=== PATIENT | female | born 1945 | race Caucasian/White ===

== ENCOUNTER → 2021-03-17 | Outpatient (CLI) | payer MEDICARE, BC ==
--- NOTE | 2021-03-17 10:15 | BD ---
EXAMINATION TYPE: Axial Bone Density DATE OF EXAM: 03/17/2021 COMPARISON: NONE CLINICAL HISTORY: Postmenopausal female. Height: 62 IN Weight: 155 LBS RISK FACTORS HISTORY OF: History of Wrist Fracture: RT WRIST AGE 49 Active: LIMITED Diet low in dairy products/other sources of calcium: YES Postmenopausal woman: AGE 52 Lost more than 2 inches in height since high school: YES 11/22" MEDICATIONS: Additional Medications: CALCIUM, VIT D, TYLENOL ARTHRITIS , CBD OIL, MUSCLE RELAXERS EXAM MEASUREMENTS: Bone mineral densitometry was performed using the [employer]ek System. Bone mineral density as measured about the Lumbar spine is: ----- L1-L4(G/cm2): 1.015 T Score Values are as follows: ----- L2: -2.3 ----- L3: -1.7 ----- L4: 0.3 ----- L1-L4: -1.4 Bone mineral density BASELINE Bone mineral density about the R hip (g/cm2): 0.763 Bone mineral density about the L hip (g/cm2): 0.741 T Score values are as follows: -----R Neck: -2.0 -----L Neck: -2.1 -----R Total: -2.0 -----L Total: -2.3 Bone mineral density BASELINE IMPRESSION: Osteopenia (T Score between -2.5 and -1). There is slightly increased risk of fracture and the patient may be considered for treatment. Re-Screen 2-5 years. NOTE: T-SCORE=SD OF THE YOUNG ADULT MEAN.
== END | disposition home or self-care (01) ==
LOC: RADBDWWP 08:30
PROVIDERS: ATTEND Family Medicine
DX: M85.89 Other specified disorders of bone density and structure, multiple sites (principal); Z78.0 Asymptomatic menopausal state
CPT/HCPCS: 77080

== ENCOUNTER 2021-04-06 06:23 | Emergency (ER) | payer MEDICARE, BC ==
[2021-04-06 06:32] VITALS: RESP 18
[2021-04-06] MEDS ORDERED: KETOROLAC 15 MG/ML 1 ML VIAL IM STA (07:30)
--- NOTE | 2021-04-06 07:40 | ED ---
General Adult HPI - General Chief complaint: Back Pain/Injury Stated complaint: Back Pain Time Seen by Provider: 04/06/21 07:07 Source: patient, EMS, RN notes reviewed Mode of arrival: EMS - History of Present Illness Initial comments: Moni is a 75-year-old female who presents for right leg pain. Patient reports that she has had leg pain for over 4 months now. Patient has been prescribed muscle relaxer by primary care and tramadol by ortho without relief. Patient states that she has sharp shooting pain in the right lateral thigh and sometimes lower leg. States she sometimes has pain in her back. Patient denies weakness, bladder bowel changes, saddle anesthesia, or fevers. Patient states she has been seeing Dr. Rios for this. She was supposed to have an outp atient MRI but was unable to lay down for it even with the medications they gave her. Therefore they scheduled an outpatient CAT scan for today however patient came to the emergency room instead of her 740 appointment for this because of her pain. Patient has no other complaints at this time including shortness of breath, chest pain, abdominal pain, nausea or vomiting, headache, or visual changes. - Related Data Home Medications Medication Instructions Recorded Confirmed Acetaminophen [Tylenol Arthritis] 650 mg PO Q12H PRN 04/06/21 04/06/21 Pantoprazole Sodium [Protonix] 40 mg PO DAILY 04/06/21 04/06/21 predniSONE [Deltasone] See Taper PO DAILY 04/06/21 04/06/21 traMADol HCl [Ultram] 50 mg PO BID PRN 04/06/21 04/06/21 Allergies Allergy/AdvReac Type Severity Reaction Status Date / Time No Known Allergies Allergy Verified 04/06/21 08:09 Review of Systems ROS Statement: Those systems with pertinent positive or pertinent negative responses have been documented in the HPI. ROS Other: All systems not noted in ROS Statement are negative. Past Medical History Past Medical History: No Reported History History of Any Multi-Drug Resistant Organisms: None Reported Past Surgical History: Tubal Ligation Past Psychological History: No Psychological Hx Reported Smoking Status: Former smoker Past Alcohol Use History: None Reported Past Drug Use History: None Reported General Exam General appearance: alert, in no apparent distress Head exam: Present: atraumatic, normocephalic, normal inspection Eye exam: Present: normal appearance, PERRL, EOMI. Absent: scleral icterus, conjunctival injection, periorbital swelling ENT exam: Present: normal exam, mucous membranes moist Neck exam: Present: normal inspection, full ROM. Absent: tenderness, meningismus, lymphadenopathy Respiratory exam: Present: normal lung sounds bilaterally. Absent: respiratory distress, wheezes, rales, rhonchi, stridor Cardiovascular Exam: Present: regular rate, normal rhythm, normal heart sounds. Absent: systolic murmur, diastolic murmur, rubs, gallop, clicks GI/Abdominal exam: Present: soft, normal bowel sounds. Absent: distended, tenderness, guarding, rebound, rigid Extremities exam: Present: full ROM (full ROM of the RLE. ), normal capillary refill (cap refill < 2 seconds, dp and pt pulse 2+), other (normal skin exam, sensation intact). Absent: tenderness Back exam: Absent: vertebral tenderness Neurological exam: Present: alert Course Vital Signs 04/06/21 04/06/21 04/06/21 06:26 08:10 09:00 Temperature 98.3 F Pulse Rate 91 98 90 Respiratory 18 18 18 Rate Blood Pressure 160/78 151/79 145/68 O2 Sat by Pulse 97 95 95 Oximetry Medical Decision Making - Medical Decision Making Vitals are stable. HPI and physical exam as documented. CT lumbar spine was performed. Unfortunately this does show a destructive right sacral mass with an abnormal right upper pelvic retroperitoneal mass or adenopathy worrisome for metastatic neoplasm. Further workup advised. Case was discussed with Dr. Bailey who will admit patient. Requests consult to Dr. Gutierrez as she has [facility] well as intervention[facility]ology. Pain control initiated. Disposition Clinical Impression: Sacral mass, Pelvic mass, Intractable pain Disposition: ADMITTED IP TO THIS HOSP Is patient prescribed a controlled substance at d/c from ED?: No Referrals: Dl Barnes Jr, [Primary Care Provider] - 1-2 days Time of Disposition: 10:19
[2021-04-06] MEDS ORDERED: HYDROmorphone 0.5 MG/0.5 ML SYRINGE IM STA (08:22)
--- NOTE | 2021-04-06 08:50 | CT ---
EXAMINATION TYPE: CT lumbar spine wo con DATE OF EXAM: 04/06/2021 8:39 AM COMPARISON: none. HISTORY: Rt radiculopathy CT DLP: 843.8 mGycm Automated exposure control for dose reduction was used. Unenhanced CT of the lumbar spine was performed. Bone and soft tissue window settings are submitted as well as coronal and sagittal reconstructions. There are 5 lumbar-type vertebra. There is grade 1 anterolisthesis L4 on L5. Moderate to severe disc space narrowing L5-S1 level. Vertebral body heights maintained. No acute fracture. Spinal canal gross ly preserved. There is destructive right sacral lesion measuring 5.4 x 4.2 cm image 68 measuring 5.8 cm craniocauda l dimension coronal image 50. There is additional abnormal right retroperitoneal 6.8 x 6.2 cm mass ax ial image 65 measuring 6.7 cm craniocaudal dimension coronal image 23 pass the abdominal aortic bifur cation. IMPRESSION: Destructive right sacral mass with abnormal right upper pelvic retroperitoneal mass or ad enopathy worrisome for metastatic neoplasm. Further workup and follow-up advised.
[2021-04-06] MEDS ORDERED: KETOROLAC 15 MG/ML 1 ML VIAL IVP PRN (10:19)
[2021-04-06] MEDS ORDERED: NALOXONE 0.4 MG/ML 1 ML VIAL IV PRN (10:19)
[2021-04-06] MEDS ORDERED: ONDANSETRON 4 MG/2 ML VIAL IVP PRN (10:19)
[2021-04-06] MEDS ORDERED: HYDROmorphone 0.5 MG/0.5 ML SYRINGE IVP PRN (10:19)
[2021-04-06] MEDS ORDERED: SODIUM CHLORIDE 0.9% 1,000 ML IV SCH (10:30)
[2021-04-06] MEDS ORDERED: traMADol 50 MG TAB PO PRN (10:36)
[2021-04-06] MEDS ORDERED: oxyCODONE-APAP 10-325MG 1 EACH TAB PO PRN (10:36)
[2021-04-06 10:47] LABS: HCT 43.1 % (34.0-46.0); HGB 14.8 gm/dL (11.4-16.0); MCHC 34.3 g/dL (31.0-37.0); MCV 93.5 fL (80.0-100.0); Mean Platelet Volume 7.1; Platelet Count 346 k/uL (150-450); RBC 4.61 m/uL (3.80-5.40); RDW 12.7 % (11.5-15.5); WBC 9.8 k/uL (3.8-10.6)
[2021-04-06 11:01] LABS: INR 0.9 (<1.2); Partial Thromboplastin Time 23.7 sec (22.0-30.0); Prothrombin Time 10.2 sec (9.0-12.0)
[2021-04-06 11:06] LABS: ALT 27 U/L (4-34); AST 26 U/L (14-36); African American GFR (CKD) >90 (>60 ml/min/1.73 sqM); Alkaline Phosphatase 148 U/L (38-126); Anion Gap 7 mmol/L; Blood Urea Nitrogen 12 mg/dL (7-17); Calcium 9.8 mg/dL (8.4-10.2); Carbon Dioxide 30 mmol/L (22-30); Chloride 102 mmol/L (98-107); Glucose 115 mg/dL (74-99); Non-African American GFR(CKD) >90 (>60 ml/min/1.73 sqM); Potassium 4.4 mmol/L (3.5-5.1); Sodium 139 mmol/L (137-145); Total Bilirubin 0.4 mg/dL (0.2-1.3); Total Protein 7.2 g/dL (6.3-8.2)
[2021-04-06 11:14] LABS: Lymphocytes # (M) 2.16 k/uL (1.0-4.8); Monocytes # (M) 0.49 k/uL (0-1.0); Neutrophils # (M) 7.15 k/uL (1.3-7.7); Neutrophils % (M) 73 %; Nucleated Red Blood Cells 0 /100 WBC (0-0); Total Cells Counted 100
[2021-04-06 12:56] VITALS: BP 125/61; PULSE 91; TEMP 98.4
[2021-04-07] MEDS ORDERED: PANTOPRAZOLE 40 MG TABLET PO SCH (09:00)
[2021-04-07] MEDS ORDERED: predniSONE 20 MG TAB PO SCH (09:00)
== END 2021-04-06 12:53 | disposition other institution (70) ==
LOC: EC 06:23 → 5NMEDONC 10:17 → UNDOADMIN 10:17 → EC 12:53
DX: M53.3 Sacrococcygeal disorders, not elsewhere classified (principal); R19.01 Right upper quadrant abdominal swelling, mass and lump; Z87.891 Personal history of nicotine dependence; Z98.51 Tubal ligation status
CPT/HCPCS: 99284; 96372 ×2; 96374; 80053; 85025; 85610; 85730; 87635; 72131; J1885; J1170

== ENCOUNTER → 2021-07-30 | Outpatient (CLI) | payer MEDICARE, BC ==
[2021-07-30 12:52] LABS: African American GFR (CKD) >90 (>60 ml/min/1.73 sqM); Blood Urea Nitrogen 18 mg/dL (7-17); Non-African American GFR(CKD) >90 (>60 ml/min/1.73 sqM)
--- NOTE | 2021-07-30 15:10 | CT ---
EXAMINATION TYPE: CT abdomen pelvis wo/w con DATE OF EXAM: 07/30/2021 HISTORY: Secondary malignant neoplasm of bone. Right hip pain. CT DLP: 1113.4mGycm Automated Exposure Control for Dose Reduction was Utilized. CONTRAST: CT scan of the abdomen and pelvis is performed with oral and without and with IV Contrast, patient in jected with 100 mL of Isovue M300. COMPARISON: CT lumbar spine April 06, 2021 FINDINGS: LUNG BASES: No significant abnormality is appreciated. LIVER/GB: No significant abnormality is appreciated. PANCREAS: No significant abnormality is seen. SPLEEN: No significant abnormality is seen. ADRENALS: No significant abnormality is seen. KIDNEYS: Symmetric cortical medullary uptake and excretion with slightly prominent extrarenal pelvis bilaterally. No calyceal dilatation to suggest hydronephrosis. No hydroureter bilaterally. BOWEL: The oral contrast has not reached level of terminal ileum making evaluation of distal ball sli ghtly suboptimal. Moderate gas distended stomach. Several nonspecific scattered air-fluid levels thro ughout central small bowel loops. No suspicious small bowel dilatation. Mild to moderate diffuse colo ashlyn fecal prominence from cecum to rectum. UTERUS/ADNEXA: Small calcified fibroid uterus projects to right of midline axial image 61. LYMPH NODES: Persistent abnormal right presacral heterogeneous retroperitoneal 6.9 x 6.9 x 7.2 cm mas s axial image 46 series 6 and coronal image 53. Both this lesion and sacral lesion are fairly hyperde nse on noncontrast images with perhaps minimal or no enhancement. This is deep to the right iliopsoas muscle which is deviating anteriorly and laterally. There is some mass effect without bony destructi on along the anterior margin of the L5 vertebra. This is deviating right common iliac vessels without invasion. No additional suspicious greater than 1 cm abdominal or pelvic lymph nodes. OSSEOUS STRUCTURES: Persistent destructive heterogeneous right sacral mass measuring 7.2 x 5.8 x 6.9 cm axial image 49 and coronal image 76. Demineralization is present. Grade 1 anterolisthesis L4 on L5 . Disc calcification at the T12-L1 level. OTHER: No significant additional abnormality is seen. IMPRESSION: Persistent destructive heterogeneous right sacral mass without significant enhancement fa irly stable from prior CT. Persistent fairly stable heterogeneous mass just superior to this in the u pper presacral region without significant enhancement. No definitive new masses or adenopathy.
== END | disposition home or self-care (01) ==
LOC: RADCTMAIN 12:11
PROVIDERS: ATTEND Radiology Radiation Oncology
DX: C79.51 Secondary malignant neoplasm of bone (principal); C80.1 Malignant (primary) neoplasm, unspecified
CPT/HCPCS: 82565; 84520; 74178; 36415; Q9967 ×2

== ENCOUNTER 2021-08-01 14:32 | Inpatient (IN) | payer MEDICARE, BC ==
[2021-08-01] MEDS ORDERED: HYDROmorphone 1 MG/ML 1 ML SYRINGE IVP STA ×2 (15:22→16:52)
[2021-08-01 16:02] LABS: ALT 10 U/L (4-34); AST 24 U/L (14-36); African American GFR (CKD) >90 (>60 ml/min/1.73 sqM); Albumin 3.6 g/dL (3.5-5.0); Alkaline Phosphatase 81 U/L (38-126); Anion Gap 7 mmol/L; Blood Urea Nitrogen 12 mg/dL (7-17); Calcium 9.7 mg/dL (8.4-10.2); Carbon Dioxide 27 mmol/L (22-30); Chloride 103 mmol/L (98-107); Glucose 108 mg/dL (74-99); Non-African American GFR(CKD) >90 (>60 ml/min/1.73 sqM); Potassium 4.1 mmol/L (3.5-5.1); Sodium 137 mmol/L (137-145); Total Bilirubin 0.4 mg/dL (0.2-1.3); Total Protein 6.5 g/dL (6.3-8.2)
[2021-08-01 16:27] LABS: HCT 36.9 % (34.0-46.0); HGB 12.4 gm/dL (11.4-16.0); MCH 32.3 pg (25.0-35.0); MCHC 33.7 g/dL (31.0-37.0); MCV 95.9 fL (80.0-100.0); Mean Platelet Volume 6.9; Platelet Count 343 k/uL (150-450); RBC 3.85 m/uL (3.80-5.40); RDW 14.8 % (11.5-15.5); WBC 4.9 k/uL (3.8-10.6)
[2021-08-01] MEDS ORDERED: KETOROLAC 15 MG/ML 1 ML VIAL IVP STA (16:52)
--- NOTE | 2021-08-01 16:53 | ED ---
General Adult HPI - General Chief complaint: Extremity Injury, Lower Stated complaint: R HIP PAIN Time Seen by Provider: 08/01/21 14:45 Source: patient Mode of arrival: EMS Limitations: no limitations - History of Present Illness Initial comments: Patient is a 75-year-old female with past history of sacral bone cancer who presents to the emergency department with right hip pain. The patient's was seen in the emergency department in March of this year and transferred to [facility] where they informed her that she had a large sacral mass. Workup demonstrated that is was cancerous. She has been following with Dr. Saravia for radiation. Last session was in May of this year. He received a total of 10 treatments. She followed with Dr. Jackson from [facility] for oncology. She is refusing any chemotherapy. States she was open to immunotherapy and saw her oncologist a few weeks ago. She also requested to be considered for palliative care however states that she has not heard back on either of these treatment options. She had seen or thigh earlier this year who stated that she was not a surgical candidate. Patient denies any new neurologic changes, just states that the pain is uncontrolled for the past [address] Saravia and had a CT performed 2 days ago which demonstrated that the size of her lesion is stable. She has had difficulty getting around her house to cook her meals and use the restroom. He started her on [place] 7.5/325 mg however she has not had adequate pain control taking this and her tramadol. She spoke with Dr. Saravia over the phone and was told that if her pain was uncontrolled that she should go into the hospital for pain management. Patient denies any saddle anesthesia. No fevers. No recent falls. No other alleviating, precipitating or modifying factors. - Related Data Home Medications Medication Instructions Recorded Confirmed Naproxen Sodium [Aleve] 220 mg PO TID 08/01/21 08/01/21 Sennosides [Senokot] 8.6 mg PO DAILY PRN 08/01/21 08/01/21 Previous Rx's Medication Instructions Recorded Gabapentin [Neurontin] 800 mg PO TID #180 cap 08/05/21 Lidocaine 5% Patch [Lidoderm 5% 1 patch TOPICAL DAILY #30 patch 08/05/21 Patch] Sulfamethox-Tmp 800-160Mg [Bactrim 1 each PO BID #6 tab 08/05/21 DS 800-160 mg] fentaNYL 12MCG/HR PATCH [Duragesic 1 patch TRANSDERM Q72H #10 patch 08/05/21 12MCG/HR] oxyCODONE HCL/ACETAMINOPHEN 1 - 2 tab PO Q6HR PRN 7 Days #56 08/05/21 [Percocet 5-325 mg] tab polyethylene glycoL 3350 [Miralax] 17 gm PO DAILY packet 08/05/21 Allergies Allergy/AdvReac Type Severity Reaction Status Date / Time No Known Allergies Allergy Verified 08/01/21 17:33 Review of Systems ROS Statement: Those systems with pertinent positive or pertinent negative responses have been documented in the HPI. ROS Other: All systems not noted in ROS Statement are negative. Past Medical History Past Medical History: No Reported History, Cancer Additional Past Medical History / Comment(s): unknown CA,last radiation 05/26/21 History of Any Multi-Drug Resistant Organisms: None Reported Past Surgical History: Tubal Ligation Past Psychological History: No Psychological Hx Reported Smoking Status: Former smoker Past Alcohol Use History: None Reported Past Drug Use History: None Reported General Exam Limitations: no limitations General appearance: alert, in no apparent distress Head exam: Present: atraumatic, normocephalic, normal inspection Eye exam: Present: normal appearance, PERRL, EOMI. Absent: scleral icterus, conjunctival injection, periorbital swelling ENT exam: Present: normal exam, mucous membranes moist Neck exam: Present: normal inspection. Absent: tenderness, meningismus, lymphadenopathy Respiratory exam: Present: normal lung sounds bilaterally. Absent: respiratory distress, wheezes, rales, rhonchi, stridor Cardiovascular Exam: Present: regular rate, normal rhythm, normal heart sounds. Absent: systolic murmur, diastolic murmur, rubs, gallop, clicks GI/Abdominal exam: Present: soft, normal bowel sounds. Absent: distended, tenderness, guarding, rebound, rigid Extremities exam: Present: tenderness (right hip tenderness to palpation. 4/5 strength right leg), normal capillary refill. Absent: pedal edema, joint swelling, calf tenderness Back exam: Present: normal inspection Neurological exam: Present: alert, oriented X3, CN II-XII intact Psychiatric exam: Present: normal affect, normal mood Skin exam: Present: warm, dry, intact, normal color. Absent: rash Course Vital Signs 08/01/21 14:43 Pulse Rate 85 Respiratory 16 Rate Blood Pressure 140/63 O2 Sat by Pulse 96 Oximetry Medical Decision Making - Medical Decision Making Upon arrival patient is placed in room 24. A thorough history and physical exam was performed. Laboratory studies are conducted. I did review the patient's CT from 2 days ago. She is given a dose of Dilaudid and we do get her up to ambulate her. She still has intense pain and is unable to ambulate. Patient is given a dose of Toradol and a second dose of Dilaudid. Once again repeat evaluation demonstrates that she still is having a considerable amount of pain. I recommended admission at this time for pain control for which the patient agreed. Spoke with Dr. Tello who agreed to admit the patient. Will place consults for Dr. Saravia, anesthesiology and palliative care - Lab Data Result diagrams: 08/02/21 05:50 08/02/21 05:50 Lab Results 08/01/21 08/01/21 08/01/21 Range/Units 15:41 15:41 18:08 WBC 4.9 (3.8-10.6) k/uL RBC 3.85 (3.80-5.40) m/uL Hgb 12.4 (11.4-16.0) gm/dL Hct 36.9 (34.0-46.0) % MCV 95.9 (80.0-100.0) fL MCH 32.3 (25.0-35.0) pg MCHC 33.7 (31.0-37.0) g/dL RDW 14.8 (11.5-15.5) % Plt Count 343 (150-450) k/uL MPV 6.9 Neutrophils % (Manual) 75 % Lymphocytes % (Manual) 16 % Monocytes % (Manual) 9 % Neutrophils # (Manual) 3.68 (1.3-7.7) k/uL Lymphocytes # (Manual) 0.78 L (1.0-4.8) k/uL Monocytes # (Manual) 0.44 (0-1.0) k/uL Nucleated RBCs 0 (0-0) /100 WBC Manual Slide Review Performed Poikilocytosis (manual Present Anisocytosis (manual) Present Sodium 137 (137-145) mmol/L Potassium 4.1 (3.5-5.1) mmol/L Chloride 103 (98-107) mmol/L Carbon Dioxide 27 (22-30) mmol/L Anion Gap 7 mmol/L BUN 12 (7-17) mg/dL Creatinine 0.42 L (0.52-1.04) mg/dL Est GFR (CKD-EPI)AfAm >90 (>60 ml/min/1.73 sqM) Est GFR (CKD-EPI)NonAf >90 (>60 ml/min/1.73 sqM) BUN/Creatinine Ratio (12.00-20.00) Ratio Glucose 108 H (74-99) mg/dL Calcium 9.7 (8.4-10.2) mg/dL Total Bilirubin 0.4 (0.2-1.3) mg/dL AST 24 (14-36) U/L ALT 10 (4-34) U/L Alkaline Phosphatase 81 (38-126) U/L Total Protein 6.5 (6.3-8.2) g/dL Albumin 3.6 (3.5-5.0) g/dL Coronavirus (PCR) Not Detected (Not Detectd) 08/02/21 08/02/21 Range/Units 05:50 05:50 WBC 4.6 (3.8-10.6) k/uL RBC 3.58 L (3.80-5.40) m/uL Hgb 11.4 (11.4-16.0) gm/dL Hct 34.8 (34.0-46.0) % MCV 97.3 (80.0-100.0) fL MCH 31.9 (25.0-35.0) pg MCHC 32.8 (31.0-37.0) g/dL RDW 14.3 (11.5-15.5) % Plt Count 292 (150-450) k/uL MPV 7.2 Neutrophils % (Manual) 77 % Lymphocytes % (Manual) 12 % Monocytes % (Manual) 11 % Neutrophils # (Manual) 3.54 (1.3-7.7) k/uL Lymphocytes # (Manual) 0.55 L (1.0-4.8) k/uL Monocytes # (Manual) 0.51 (0-1.0) k/uL Nucleated RBCs 0 (0-0) /100 WBC Manual Slide Review Performed Poikilocytosis (manual Present Anisocytosis (manual) Present Sodium 141 (137-145) mmol/L Potassium 4.2 (3.5-5.1) mmol/L Chloride 106 (98-107) mmol/L Carbon Dioxide 28.1 (22-30) mmol/L Anion Gap 6.90 mmol/L BUN 15.0 (7-17) mg/dL Creatinine 0.5 L (0.52-1.04) mg/dL Est GFR (CKD-EPI)AfAm 111.3 (>60 ml/min/1.73 sqM) Est GFR (CKD-EPI)NonAf 96.0 (>60 ml/min/1.73 sqM) BUN/Creatinine Ratio 30.00 H (12.00-20.00) Ratio Glucose 97 (74-99) mg/dL Calcium 8.9 (8.4-10.2) mg/dL Total Bilirubin (0.2-1.3) mg/dL AST (14-36) U/L ALT (4-34) U/L Alkaline Phosphatase (38-126) U/L Total Protein (6.3-8.2) g/dL Albumin (3.5-5.0) g/dL Coronavirus (PCR) (Not Detectd) Disposition Clinical Impression: Back pain, Hip pain, Sacral mass Disposition: ADMITTED IP TO THIS [facility] Condition: Stable Is patient prescribed a controlled substance at d/c from ED?: No Decision to Admit Reason: Admit from EC Decision Date: 08/01/21 Decision Time: 17:37
[2021-08-01 17:09] LABS: Lymphocytes # (M) 0.78 k/uL (1.0-4.8); Monocytes # (M) 0.44 k/uL (0-1.0); Neutrophils # (M) 3.68 k/uL (1.3-7.7); Neutrophils % (M) 75 %; Nucleated Red Blood Cells 0 /100 WBC (0-0); Total Cells Counted 100
[2021-08-01 17:10] LABS: Anisocytosis (M) Present; Poikilocytosis (M) Present
[2021-08-01] MEDS ORDERED: NALOXONE 0.4 MG/ML 1 ML VIAL IV PRN (17:37)
[2021-08-01] MEDS ORDERED: GABAPENTIN 300 MG CAP PO SCH (18:00)
[2021-08-01] MEDS ORDERED: BACLOFEN 10 MG TAB PO PRN (18:30)
--- NOTE | 2021-08-01 18:41 | P.HPIM ---
History of Present Illness H&P Date: 08/01/21 Chief Complaint: Sacral mass Patient is a 75-year-old female she has a past medical history of sacral bone cancer she presented to the hospital with a chief complaint of worsening right hip pain. Patient has a medical history of significant large sacral mass with metastatic disease. Patient follows at [facility] with oncology. Patient states that she is refusing chemotherapy and she recently received radiation treatment by Dr. Saravia in April/May of this year. Patient received a total of 10 treatments and stated that she received tube relief of her sciatic pain as well as constipation issues. She currently follows with Dr. Saravia for pain management. She was recently prescribed [place] for pain control however she states that her pain has now become uncontrollable in her right hip. She was advised to come into the emergency room for further pain control. She currently denies any nausea vomiting fevers or chills chest pain or shortness of breath. Past medical history: Sacral mass, bone cancer, Past surgical history: Tubal ligation Social history: Patient is a former tobacco user denies any current tobacco use denies any alcohol or other illicit drug use Family history: Patient denies any family history of malignancies Review of Systems Full 12 point complete review of system was performed and pertinent positives and negatives noted in HPI. All other systems reviewed were negative All systems: negative Past Medical History Past Medical History: No Reported History, Cancer Additional Past Medical History / Comment(s): unknown CA,last radiation 05/26/21 History of Any Multi-Drug Resistant Organisms: None Reported Past Surgical History: Tubal Ligation Past Psychological History: No Psychological Hx Reported Smoking Status: Former smoker Past Alcohol Use History: None Reported Past Drug Use History: None Reported Medications and Allergies Home Medications Medication Instructions Recorded Confirmed Type traMADol HCl [Ultram] 50 mg PO TID 04/06/21 08/01/21 History Gabapentin 300 mg PO QID 08/01/21 08/01/21 History HYDROcodone/APAP 7.5-325MG [[place] 1 tab PO TID 08/01/21 08/01/21 History 7.5-325] Naproxen Sodium [Aleve] 220 mg PO TID 08/01/21 08/01/21 History Sennosides [Senokot] 8.6 mg PO DAILY PRN 08/01/21 08/01/21 History Allergies Allergy/AdvReac Type Severity Reaction Status Date / Time No Known Allergies Allergy Verified 08/01/21 17:33 Physical Exam Osteopathic Statement: *. No significant issues noted on an osteopathic structural exam other than those noted in the History and Physical/Consult. Vitals: Vital Signs Pulse Resp BP Pulse Ox 08/01/21 14:43 85 16 140/63 96 Intake and Output 08/01/21 08/01/21 08/01/21 06:59 14:59 22:59 Other: Weight 65.771 kg Gen.: Patient is alert and oriented 3 in no acute distress well-developed well- nourished next HEENT: Pupils are round equal reactive to light and accommodation no scleral icterus no conjunctival erythema, normocephalic atraumatic no pharyngeal erythema no thyromegaly Cardiovascular: S1-S2 present no murmurs rubs or gallops Pulmonary: Lungs are clear to auscultation bilaterally no wheezing or crackles next Abdomen: Soft nondistended nontender to palpation Extremities: No lower extremity edema noted next Neurological: Patient is alert and oriented 3 without any neural focal deficits cranial nerves II through XII are grossly intact Skin no rashes or lesions noted Results CBC & Chem 7: 08/01/21 15:41 08/01/21 15:41 Labs: Abnormal Lab Results - Last 24 Hours (Table) 08/01/21 08/01/21 Range/Units 15:41 15:41 Lymphocytes # (Manual) 0.78 L (1.0-4.8) k/uL Creatinine 0.42 L (0.52-1.04) mg/dL Glucose 108 H (74-99) mg/dL Assessment and Plan Assessment: Sacral mass -Patient states that she was diagnosed with sacral bone cancer with metastatic disease. she has a large sacral mass is causing significant pain in her right hip. Patient follows with oncology and [facility]. She also follows with Dr. Saravia radiology oncology. Patient reports that she received 10 total treatments of radiation palliative therapy with significant relief. . Patient does not want to seek further chemotherapy. She is interested in seeking palliative care and pain control only. Patient was admitted to the hospital for pain control. She has been started on IV Dilaudid-PRN, baclofen 10 mg 3 times a day when necessary, her gabapentin dose has been increased to 600 mg 3 times a day from her 300 mg 3 times a day dose. Patient will benefit from pain management consultation as well as Dr. Saravia radiology oncology consultation (1) Back pain Current Visit: Yes Status: Acute Code(s): M54.9 - DORSALGIA, UNSPECIFIED SNOMED Code(s): 832699703 (2) Hip pain Current Visit: Yes Status: Acute Code(s): M25.559 - PAIN IN UNSPECIFIED HIP SNOMED Code(s): 51611405 (3) Sacral mass Current Visit: Yes Status: Acute Code(s): M53.3 - SACROCOCCYGEAL DISORDERS, NOT ELSEWHERE CLASSIFIED SNOMED Code(s): 46678349
[2021-08-01] MEDS: GABAPENTIN 300 MG CAP PO SCH (19:41)
[2021-08-01] MEDS: HYDROmorphone 1 MG/ML 1 ML SYRINGE IVP PRN (22:12)
[2021-08-02] MEDS: KETOROLAC 15 MG/ML 1 ML VIAL IVP PRN ×4 (01:04→19:31)
[2021-08-02] MEDS: HYDROmorphone 1 MG/ML 1 ML SYRINGE IVP PRN ×8 (01:04→22:59)
[2021-08-02 06:41] LABS: HCT 34.8 % (34.0-46.0); HGB 11.4 gm/dL (11.4-16.0); MCH 31.9 pg (25.0-35.0); MCHC 32.8 g/dL (31.0-37.0); MCV 97.3 fL (80.0-100.0); Mean Platelet Volume 7.2; Platelet Count 292 k/uL (150-450); RBC 3.58 m/uL (3.80-5.40); RDW 14.3 % (11.5-15.5); WBC 4.6 k/uL (3.8-10.6)
[2021-08-02] MEDS: GABAPENTIN 300 MG CAP PO SCH ×3 (07:52→22:58)
[2021-08-02] MEDS: SENNOSIDES 8.6 MG TAB PO PRN (07:56)
[2021-08-02 08:30] LABS: Lymphocytes # (M) 0.55 k/uL (1.0-4.8); Monocytes # (M) 0.51 k/uL (0-1.0); Neutrophils # (M) 3.54 k/uL (1.3-7.7); Neutrophils % (M) 77 %; Nucleated Red Blood Cells 0 /100 WBC (0-0); Total Cells Counted 100
[2021-08-02 08:31] LABS: Anisocytosis (M) Present; Poikilocytosis (M) Present
[2021-08-02 09:36] LABS: African American GFR (CKD) 111.3 (60.0-200.0); Anion Gap 6.9 mmol/L (4.00-12.00); Calcium 8.9 mg/dL (8.7-10.3); Carbon Dioxide 28.1 mmol/L (21.6-31.8); Potassium 4.2 mmol/L (3.5-5.5)
--- NOTE | 2021-08-02 15:13 | P.PN ---
Subjective Progress Note Date: 08/02/21 HPI: Patient is a 75-year-old female she has a past medical history of sacral bone cancer she presented to the hospital with a chief complaint of worsening right hip pain. Patient has a medical history of significant large sacral mass with metastatic disease. Patient follows at [facility] with oncology. Patient states that she is refusing chemotherapy and she recently received radiation treatment by Dr. Saravia in April/May of this year. Patient received a total of 10 treatments and stated that she received tube relief of her sciatic pain as well as constipation issues. She currently follows with Dr. Saravia for pain management. She was recently prescribed [place] for pain control however she states that her pain has now become uncontrollable in her right hip. She was advised to come into the emergency room for further pain control. She currently denies any nausea vomiting fevers or chills chest pain or shortness of breath. Subjective: 08/02/2021 patient still complains of hip pain. She denies chest pain or shortness of breath, no hematuria dysuria hematemesis or hematochezia. Objective - Vital Signs Vital signs: Vital Signs Temp 98.2 F 08/02/21 11:57 Pulse 79 08/02/21 11:57 Resp 18 08/02/21 11:57 BP 126/66 08/02/21 11:57 Pulse Ox 95 08/02/21 11:57 Intake & Output 08/01/21 08/02/21 08/02/21 18:59 06:59 18:59 Intake Total 560 Balance 560 Weight 65.771 kg Intake: Oral 560 Other: Voiding Method Bedside Commode Bedpan # Voids 2 - Exam Gen.: Patient is alert and oriented 3 in no acute distress HEENT: Pupils are round equal reactive to light and accommodation no scleral icterus Cardiovascular: S1-S2 present no murmurs rubs or gallops Pulmonary: Lungs are clear to auscultation bilaterally no wheezing or crackles Abdomen: Soft nondistended nontender to palpation Extremities: No lower extremity edema noted next Neurological: Patient is alert and oriented 3 without any neural focal deficits cranial nerves II through XII are grossly intact Skin no rashes or lesions noted - Labs CBC & Chem 7: 08/02/21 05:50 08/02/21 05:50 Labs: Abnormal Lab Results - Last 24 Hours (Table) 08/01/21 08/01/21 08/02/21 Range/Units 15:41 15:41 05:50 RBC 3.58 L (3.80-5.40) m/uL Lymphocytes # (Manual) 0.78 L 0.55 L (1.0-4.8) k/uL Creatinine 0.42 L (0.52-1.04) mg/dL BUN/Creatinine Ratio (12.00-20.00) Ratio Glucose 108 H (74-99) mg/dL 08/02/21 Range/Units 05:50 RBC (3.80-5.40) m/uL Lymphocytes # (Manual) (1.0-4.8) k/uL Creatinine 0.5 L (0.52-1.04) mg/dL BUN/Creatinine Ratio 30.00 H (12.00-20.00) Ratio Glucose (74-99) mg/dL Assessment and Plan Plan: Sacral mass with sacral bone cancer with metastatic disease. she has a large sacral mass is causing significant pain in her right hip. Patient follows with oncology and [facility]. She also follows with Dr. Saravia radiology oncology. she received 10 total treatments of radiation palliative therapy . Patient does not want to seek further chemotherapy. She is interested in seeking palliative care and pain control only. Patient was admitted to the hospital for pain control. She has been started on IV Dilaudid-PRN, baclofen 10 mg 3 times a day when necessary, her gabapentin dose has been increased to 600 mg 3 times a day from her 300 mg 3 times a day dose. Added lidocaine patch Continue pain control as indicated Disposition: Pending clinical progression
[2021-08-02] MEDS: LIDOCAINE 5% PATCH TOPICAL SCH (16:21)
[2021-08-03] MEDS: KETOROLAC 15 MG/ML 1 ML VIAL IVP PRN ×2 (02:54→09:03)
[2021-08-03] MEDS: HYDROmorphone 1 MG/ML 1 ML SYRINGE IVP PRN ×2 (02:55→05:47)
[2021-08-03] MEDS: LIDOCAINE 5% PATCH TOPICAL SCH (08:07)
[2021-08-03] MEDS: GABAPENTIN 300 MG CAP PO SCH (08:07)
[2021-08-03] MEDS ORDERED: oxyCODONE-APAP 10-325MG 1 EACH TAB PO PRN (08:50)
[2021-08-03] MEDS: SENNOSIDES 8.6 MG TAB PO PRN (09:46)
[2021-08-03] MEDS: oxyCODONE-APAP 10-325MG 1 EACH TAB PO SCH ×2 (11:50→17:48)
[2021-08-03] MEDS: GABAPENTIN 400 MG CAP PO SCH ×2 (15:34→21:38)
--- NOTE | 2021-08-03 17:20 | P.PN ---
Subjective Progress Note Date: 08/03/21 (Delayed charting seen 914) Principal diagnosis: intractable pain Patient is a 75-year-old female with 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 Saravia secondary to uncontrolled pain. Initial laboratory analysis is unremarkable. She was admitted for pain control. She was started on Toradol, baclofen, and Dilaudid. Patient seen and examined at bedside. She reports that she has had no improvement in her pain. She states that she is unsure if the Dilaudid helps at all, if it wears off, where she's had any improvement. She states she cannot stand. She is unable to tell me she is having any numbness or tingling. She does state that she had palliative radiation to her sacrum, but refused chemotherapy. She states she is waiting for results of advanced genetic testing for possible immunotherapy. She states that Dr. Saravia increased her to Norvasc 10 but she continued to have pain and therefore came to the hospital. She also reports that she thinks her right buttock is more swollen after eating floyd this morning. General: non toxic, no distress, appears at stated age Derm: warm, dry Head: atraumatic, normocephalic, symmetric Eyes: EOMI, no lid lag, anicteric sclera Mouth: no lip lesion, mucus membranes moist Cardiovascular: S1S2 reg, no murmur, positive posterior tibial pulse bilateral, Lungs: Decreased breath sounds bilateral, no rhonchi, no rales , no accessory muscle use Abdominal: soft, nontender to palpation, no guarding, no appreciable organomegaly Ext: no gross muscle atrophy, no edema, no contractures Neuro: CN II-XI grossly intact, patient was unable to tolerate extension at the knee and hip secondary to pain. Psych: Alert, oriented, appropriate affect Intractable pain related to malignancy Adenocarcinoma of the sacrum and apelvis -case discussed with Dr. Saravia -Consult medical oncology -Add Percocet and attempt to minimize Dilaudid and will stop Toradol to see if pain management to offering nonnarcotic options. - referral to [facility] Palliative - pt/ot Objective - Vital Signs Vital signs: Vital Signs Temp 98.3 F 08/03/21 12:06 Pulse 80 08/03/21 12:06 Resp 18 08/03/21 12:06 BP 115/69 08/03/21 12:06 Pulse Ox 94 L 08/03/21 12:06 Intake & Output 08/02/21 08/03/21 08/03/21 18:59 06:59 18:59 Intake Total 830 Balance 830 Intake: Oral 830 Other: Voiding Method Bedside Commode Bedside Commode Bedpan Bedpan # Voids 2 - Labs CBC & Chem 7: 08/02/21 05:50 08/02/21 05:50
[2021-08-04] MEDS: oxyCODONE-APAP 10-325MG 1 EACH TAB PO SCH ×2 (00:09→05:48)
[2021-08-04] MEDS: GABAPENTIN 400 MG CAP PO SCH ×2 (08:50→17:48)
[2021-08-04] MEDS: LIDOCAINE 5% PATCH TOPICAL SCH (08:50)
--- NOTE | 2021-08-04 09:41 | P.CONS ---
History of Present Illness - Reason for Consult Consult date: 08/03/21 worsening pain - sacral lesion Requesting physician: Radha Currie - Chief Complaint right hip pain, inability to ambulate - History of Present Illness The patient is a 75-year-old female recently with a metastatic adenocarcinoma of unknown primary, presenting with a large destructive right sacral lesion and a couple small pulmonary lesions. She underwent a course of palliative radiotherapy finishing on 05/27/2021 due to lower back/right hip pain. She was seen in medical oncology at [facility] and offered palliative chemotherapy, which the patient declined. They did perform molecular testing of her tumor to evaluate for other possible treatments, but she did not hear back from them regarding these results. She now presents to the hospital with increasing pain and difficulty ambulating at home. The patient reports that over the last several weeks there has been increased pain starting in the right mid buttock with numbness and pain radiating down the right leg. The patient had previously been taking gabapentin and tramadol at home or the past couple of months with reasonable pain control. She underwent a repeat CT Abd/pelvis on 07/30/21 which revealed the large right sacral lesion and the superior large presacral mass to be relatively stable. She unfortunately has had progressive increase in her pain, and even with [place] added to her regimen a week ago the pain appeared to not respond well to this. When she stated she was unable to ambulate up a few stairs at home I advised the patient to present to the ER. Since her hospital stay, the patient reports her pain is doing slightly better. She took a Percocet in the middle the date today which seemed to help, and she did have a Dilaudid treatment early in the morning. I did advise the patient that she should be set up with palliative care as an outpatient secondary to her increased difficulty with pain control. Review of Systems Constitutional: Denies chills, Denies fever Eyes: denies blurred vision Ears: deny: decreased hearing Ears, nose, mouth and throat: Denies headache Cardiovascular: Denies chest pain Respiratory: Denies congestion, Denies cough Gastrointestinal: Reports constipation Genitourinary: Denies dysuria Musculoskeletal: Reports low back pain Integumentary: Denies pruritus, Denies rash Neurological: Reports numbness (RLE), Denies aphasia, Denies convulsions Psychiatric: Denies confusion, Denies depression Past Medical History Past Medical History: No Reported History, Cancer Additional Past Medical History / Comment(s): unknown CA,last radiation 05/26/21 History of Any Multi-Drug Resistant Organisms: None Reported Past Surgical History: Tubal Ligation Past Psychological History: No Psychological Hx Reported Smoking Status: Former smoker Past Alcohol Use History: None Reported Past Drug Use History: None Reported Medications and Allergies Home Medications Medication Instructions Recorded Confirmed Type traMADol HCl [Ultram] 50 mg PO TID 04/06/21 08/01/21 History Gabapentin 300 mg PO QID 08/01/21 08/01/21 History HYDROcodone/APAP 7.5-325MG [[place] 1 tab PO TID 08/01/21 08/01/21 History 7.5-325] Naproxen Sodium [Aleve] 220 mg PO TID 08/01/21 08/01/21 History Sennosides [Senokot] 8.6 mg PO DAILY PRN 08/01/21 08/01/21 History Allergies Allergy/AdvReac Type Severity Reaction Status Date / Time No Known Allergies Allergy Verified 08/01/21 17:33 Physical Exam Vitals: Vital Signs Temp Pulse Resp BP Pulse Ox 08/04/21 04:38 98 F 76 16 106/63 94 L 08/03/21 20:37 98.2 F 86 16 127/68 94 L 08/03/21 12:06 98.3 F 80 18 115/69 94 L Intake and Output 08/03/21 08/04/21 08/04/21 22:59 06:59 14:59 Intake Total 580 Balance 580 Intake: Oral 580 Other: # Voids 2 1 - Constitutional General appearance: no acute distress - EENT Eyes: EOMI, PERRLA ENT: hearing grossly normal - Neck Neck: no lymphadenopathy - Respiratory Respiratory: bilateral: CTA - Cardiovascular Rhythm: regular - Integumentary Integumentary: no pale - Musculoskeletal Musculoskeletal: right sided weakness (RLE - intact sensation, patient able to move hip/knee but not again force (3/5 strength)) - Psychiatric Psychiatric: A&O x's 3, appropriate affect Results CBC & Chem 7: 08/02/21 05:50 08/02/21 05:50 CT scan - pelvis: report reviewed, image reviewed Assessment and Plan Assessment: The patient is a 75-year-old female recently with a metastatic adenocarcinoma of unknown primary, presenting with a large destructive right sacral lesion and a couple small pulmonary lesions. She underwent a course of palliative radiotherapy finishing on 05/27/2021 due to lower back/right hip pain. She was seen in medical oncology at [facility] and offered palliative chemotherapy, which the patient declined. They did perform molecular testing of her tumor to evaluate for other possible treatments, but she did not hear back from them regarding these results. She now presents to the hospital with increasing pain and difficulty ambulating at home. Plan: 1. Right hip pain: This is due to the patient's large sacral mass. She previously seem to have some benefit from palliative radiotherapy, but in a relatively short period of time she is now complaining of increasing pain and difficulty with ambulation. The sacral lesion has significant mass effect on the right-sided nerve roots resulting in radiculopathy. There is no need for urgent radiotherapy at this time, and as noted above the patient had a relatively short lived response to her initial palliative radiation. 2. Metastatic adenocarcinoma of unknown primary: As noted above, the patient was offered palliative chemotherapy by medical oncology at [facility]. They also ordered molecular testing on her cancer, and the patient reports she never heard back regarding these results. I was able to obtain a copy of this and it does not appear she has a clear non-chemotherapy treatment option, but I will defer to medical oncology to analyze this. I have recommended the patient be transitioned to palliative care to help with pain control. If she does not elect to do any therapy with medical oncology then hospice would be appropriate. As noted above she has previously adamantly refused chemotherapy. Will request medical oncology evaluation during hospital stay. Time with Patient: Greater than 30
[2021-08-04] MEDS ORDERED: oxyCODONE-APAP 10-325MG 1 EACH TAB PO PRN (11:09)
[2021-08-04] MEDS: polyethylene glycoL 3350 17 GM POWD.PACK PO SCH (12:19)
[2021-08-04] MEDS: oxyCODONE-APAP 7.5-325MG 1 EACH TAB PO PRN ×2 (12:53→19:55)
--- NOTE | 2021-08-04 18:28 | P.CONS ---
History of Present Illness - Reason for Consult Consult date: 08/04/21 sacral mass, adenocarcinoma of unknown primary Requesting physician: Radha Currie - Chief Complaint rt leg pain - History of Present Illness Mrs. Marin is a very pleasant 75-year-old female recently diagnosed with adenocarcinoma of unknown primary. She presented with a large destructive right sacral lesion and few pulmonary lesions. She completed palliative XRT 05/27/2021 for the low back/right hip pain. She was seen by Oncology at [facility], treatment offered and pt declined chemotherapy. Pending molecular testing of tumor to evaluate for targeted therapy possibilities. She presents to [facility] with c/o increasing pain and difficulty ambulating. Pain starts right mid buttock with numbness and pain radiating down the right leg. The patient had pr eviously been taking gabapentin and tramadol at home or the past couple of months with reasonable pain control. She underwent a repeat CT AP 07/30/21 which revealed the large right sacral lesion and the superior large presacral mass to be relatively stable. She unfortunately has had progressive increase in her pain. She was advised to seek medical care when she reported to Rad Onc that she was unable to ambulate up a few stairs at home. Pain is doing better today. Review of Systems 10 point ROS is neg except as stated in HPI Past Medical History Past Medical History: No Reported History, Cancer Additional Past Medical History / Comment(s): unknown CA,last radiation 05/26/21 History of Any Multi-Drug Resistant Organisms: None Reported Past Surgical History: Tubal Ligation Past Psychological History: No Psychological Hx Reported Smoking Status: Former smoker Past Alcohol Use History: None Reported Past Drug Use History: None Reported Medications and Allergies Home Medications Medication Instructions Recorded Confirmed Type traMADol HCl [Ultram] 50 mg PO TID 04/06/21 08/01/21 History Gabapentin 300 mg PO QID 08/01/21 08/01/21 History HYDROcodone/APAP 7.5-325MG [[place] 1 tab PO TID 08/01/21 08/01/21 History 7.5-325] Naproxen Sodium [Aleve] 220 mg PO TID 08/01/21 08/01/21 History Sennosides [Senokot] 8.6 mg PO DAILY PRN 08/01/21 08/01/21 History Allergies Allergy/AdvReac Type Severity Reaction Status Date / Time No Known Allergies Allergy Verified 08/01/21 17:33 Physical Exam Vitals: Vital Signs Temp Pulse Pulse Resp BP BP Pulse Ox 08/04/21 11:50 98.4 F 77 16 118/78 96 08/04/21 09:00 76 16 08/04/21 04:38 98 F 76 16 106/63 94 L 08/03/21 20:37 98.2 F 86 16 127/68 94 L Intake and Output 08/04/21 08/04/21 08/04/21 06:59 14:59 22:59 Intake Total 360 Balance 360 Intake: Oral 360 Other: Voiding Method Bedside Commode # Voids 1 2 - Constitutional General appearance: average body habitus, cooperative, no acute distress - EENT Eyes: anicteric sclerae, EOMI ENT: hearing grossly normal, normal oropharynx - Neck Neck: no lymphadenopathy - Respiratory Respiratory: bilateral: CTA - Cardiovascular Rhythm: regular Heart sounds: normal: S1, S2 Abnormal Heart Sounds: no systolic murmur, no diastolic murmur, no rub, no S3 Gallop, no S4 Gallop, no click, no other leg Peripheral Edema: bilateral: None - Gastrointestinal General gastrointestinal: no absent bowel sounds, no decreased bowel sounds, no distended, no hepatomegaly, no hyperactive bowel sounds, normal bowel sounds, no organomegaly, no rigid, no scaphoid, soft, no splenomegaly, no tenderness, no umbilical hernia, no ventral hernia - Integumentary Integumentary: normal - Neurologic Neurologic: CNII-XII intact - Musculoskeletal RLE pt has to assist to lift/bend at the knee - Psychiatric Psychiatric: A&O x's 3, appropriate affect, intact judgment & insight Results CBC & Chem 7: 08/02/21 05:50 08/02/21 05:50 Assessment and Plan (1) Sacral mass Narrative/Plan: Pt has been diagnosed with adenocarcinoma, unknown primary. Pending molecular studies on tumor. Pt thinks she was supposed to have PET sometime after the . We will see what info we can get for pt. Pt is not interested in chemotherapy but is interested in immunotherapy or maybe targeted therapy, if tumor is found to have MSI high, high TMB or other mutation with a tartget therapy. Again, will see what info has been obtained and let pt know options that are available to her If no non-chmo options recommended hospice for support to keep pt at home and comfortable. She verbalized understanding. Will f/u Current Visit: Yes Status: Acute Priority: High Code(s): M53.3 - SACROCOCCYGEAL DISORDERS, NOT ELSEWHERE CLASSIFIED SNOMED Code(s): 77878934 Plan: Pain meds being adjusted for pain control. attests: I have performed H&P and developed impression and plan of care for pt. Discussed with dictator. Agree with documentation, documented as a scribe.
[2021-08-04 18:31] LABS: Appearance,Urine Turbid (Clear); Bacteria,Urine Many /hpf; Bilirubin,Urine Negative (Negative); Blood,Urine Large (Negative); Color,Urine Yellow; Glucose,Urine (UA) Negative (Negative); Ketones,Urine Negative (Negative); Leukocyte Esterase,Urine Large (Negative); Nitrite,Urine Negative (Negative); PH, Urine 5.5 (5.0-8.0); Protein,Urine 2+ (Negative); RBC,Urine 87 /hpf (0-5); Urobilinogen,Urine <2.0 mg/dL (<2.0); WBC,Urine >182 /hpf (0-5)
[2021-08-04 18:32] LABS: Specific Gravity,Urine 1.019 (1.001-1.035)
--- NOTE | 2021-08-04 19:01 | P.PN ---
Subjective Progress Note Date: 08/04/21 (Delayed charting seen at 0900) Principal diagnosis: intractable pain Patient is a 75-year-old female with 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 Saravia secondary to uncontrolled pain. Initial laboratory analysis is unremarkable. She was admitted for pain control. She was started on Toradol, baclofen, and Dilaudid. She was started on Percocet on 08/03 with some improvement in her pain. Patient seen and examined at bedside. He reports significant improvement in her pain between Percocet and increase Neurontin. She is still having to take Percocet [id number]. We discussed that she likely benefit from a long- acting opiate with additional breakthrough medications for pain she is in agreement. After a long discussion of risk and benefits we elected to try the fentanyl patch she has also been having some constipation and has not had a bowel movement in several days. She has been taking senna but is unsure that it has been effective. She also reports that she thinks her right buttock is more swollen after eating floyd this morning. General: non toxic, no distress, appears at stated age Derm: warm, dry Head: atraumatic, normocephalic, symmetric Eyes: EOMI, no lid lag, anicteric sclera Mouth: no lip lesion, mucus membranes moist Cardiovascular: S1S2 reg, no murmur, positive posterior tibial pulse bilateral, Lungs: Decreased breath sounds bilateral, no rhonchi, no rales , no accessory muscle use Abdominal: soft, nontender to palpation, no guarding, no appreciable organomegaly Ext: no gross muscle atrophy, no edema, no contractures Neuro: CN II-XI grossly intact, patient was unable to tolerate extension at the knee and hip secondary to pain. Psych: Alert, oriented, appropriate affect Intractable pain related to malignancy Adenocarcinoma of the sacrum and apelvis -Appreciate medical oncology and radiation oncology recommendations. -Add in all patch and transition Percocet as needed to control pain. -Gabapentin was increased on 08/03. - referral to [facility] - pt/ot Constipation -Add MiraLAX, continue with them on -Patient will try prune juice if no BM by this evening Active Medications Generic Name Dose Route Start Last Admin Trade Name Freq PRN Reason Stop Dose Admin Baclofen 10 mg 08/01/21 18:30 08/02/21 14:16 Baclofen 10 Mg Tab PO 10 mg QID PRN Administration Muscle Spasm Fentanyl 1 patch 08/04/21 12:00 08/04/21 12:18 Fentanyl 12mcg/Hr Patch TRANSDERM 1 patch Q72H GERHARD Administration Protocol Gabapentin 800 mg 08/03/21 16:00 08/04/21 17:48 Gabapentin 400 Mg Cap PO 800 mg TID GERHARD Administration Hydromorphone HCl 1 mg 08/01/21 17:37 08/03/21 05:47 Hydromorphone 1 Mg/Ml 1 Ml Syringe IVP 1 mg Q3HR PRN Administration Severe Pain Lidocaine 1 patch 08/02/21 15:15 08/04/21 08:50 Lidocaine 5% Patch TOPICAL 1 patch DAILY [facility] Administration Protocol Naloxone HCl 0.2 mg 08/01/21 17:37 Naloxone 0.4 Mg/Ml 1 Ml Vial IV Q2M PRN Opioid Reversal Oxycodone/Acetaminophen 1 each 08/04/21 11:09 Oxycodone-Apap 10-325mg 1 Each Tab PO Q6HR PRN Severe Breakthrough Pain Oxycodone/Acetaminophen 1 each 08/04/21 11:08 08/04/21 12:53 Oxycodone-Apap 7.5-325mg 1 Each Tab PO 1 each Q6HR PRN Administration Moderate Pain Polyethylene Glycol 17 gm 08/04/21 11:15 08/04/21 12:19 Polyethylene Glycol 3350 17 Gm Powd.Pack PO 17 gm DAILY GERHARD Administration Senna 8.6 mg 08/01/21 17:44 08/03/21 09:46 Sennosides 8.6 Mg Tab PO 8.6 mg DAILY PRN Administration Constipation Objective - Vital Signs Vital signs: Vital Signs Temp 98.4 F 08/04/21 11:50 Pulse 77 08/04/21 11:50 Resp 16 08/04/21 11:50 BP 118/78 08/04/21 11:50 Pulse Ox 96 08/04/21 11:50 Intake & Output 08/03/21 08/04/21 08/04/21 18:59 06:59 18:59 Intake Total 580 360 Balance 580 360 Intake: Oral 580 360 Other: Voiding Method Bedside Commode # Voids 2 1 2 - Labs CBC & Chem 7: 08/02/21 05:50 08/02/21 05:50 Labs: Abnormal Lab Results - Last 24 Hours (Table) 08/04/21 Range/Units 17:57 Urine Appearance Turbid H (Clear) Urine Protein 2+ H (Negative) Urine Blood Large H (Negative) Ur Leukocyte Esterase Large H (Negative) Urine RBC 87 H (0-5) /hpf Urine WBC >182 H (0-5) /hpf Urine WBC Clumps Many H (None) /hpf Urine Bacteria Many H (None) /hpf
[2021-08-04] MEDS: SULFAMETHOX-TMP 800-160MG 1 EACH TAB PO SCH (19:55)
[2021-08-04] MEDS ORDERED: SENNOSIDES 8.6 MG TAB ONE (23:44)
[2021-08-04] MEDS ORDERED: GABAPENTIN 400 MG CAP ONE (23:44)
[2021-08-05] MEDS: oxyCODONE-APAP 7.5-325MG 1 EACH TAB PO PRN ×2 (04:19→11:36)
[2021-08-05 04:36] VITALS: RESP 16
[2021-08-05] MEDS: GABAPENTIN 400 MG CAP PO SCH ×2 (08:07→08:09)
[2021-08-05] MEDS: polyethylene glycoL 3350 17 GM POWD.PACK PO SCH (08:08)
[2021-08-05] MEDS: LIDOCAINE 5% PATCH TOPICAL SCH (08:08)
[2021-08-05] MEDS: SULFAMETHOX-TMP 800-160MG 1 EACH TAB PO SCH (08:09)
[2021-08-05 11:28] VITALS: BP 127/66; PULSE 87; TEMP 98.1
--- NOTE | 2021-08-05 19:23 | P.PN ---
Subjective Progress Note Date: 08/05/21 Principal diagnosis: pain related to malignancy, adenocarcinoma, unknown primary In follow-up today patient seems to have decent pain control, she has no acute complaints. Using a walker for short distance ambulation. Objective - Vital Signs Vital signs: Vital Signs Temp 98.1 F 08/05/21 11:16 Pulse 87 08/05/21 11:16 Resp 16 08/05/21 11:16 BP 127/66 08/05/21 11:16 Pulse Ox 99 08/05/21 11:16 Intake & Output 08/05/21 08/05/21 08/06/21 06:59 18:59 06:59 Other: Voiding Method Bedside Commode Bedside Commode # Voids 1 - Constitutional General appearance: Present: cooperative, no acute distress, thin - EENT Eyes: Present: anicteric sclerae, EOMI ENT: Present: hearing grossly normal - Respiratory Respiratory: bilateral: CTA - Cardiovascular Heart sounds: normal: S1, S2 - Peripheral edema leg Peripheral Edema: bilateral: None - Gastrointestinal General gastrointestinal: Present: normal bowel sounds, soft - Psychiatric Psychiatric: Present: A&O x's 3, appropriate affect, intact judgment & insight - Labs CBC & Chem 7: 08/02/21 05:50 08/02/21 05:50 Labs: Microbiology - Last 24 Hours (Table) 08/04/21 17:57 Urine Culture - Preliminary Urine,Voided Assessment and Plan (1) Sacral mass Narrative/Plan: Pt has been diagnosed with adenocarcinoma, unknown primary. molecular studies were obtained. Patient is MSI stable, she has several mutations that have targeted therapies associated with them but, it is clinical trial availability and patient has an unknown primary tumor which makes clinical trial admission even harder. Pt is firm in her decision that she does not want chemotherapy, most of these drugs are. Will investigate a little further for patient but, recommendation at this time is for patient to utilize supportive care such as palliative and transition to hospice as her condition progresses. She has insurance account representative from palliative care coming to her home on Tuesday. Pt was encouraged to contact Radiation Oncologist with any questions or concerns. We also provided her with our contact information if there is anything we can help her with. She verbalized understanding. All of her questions were answered to her satisfaction. Status: Acute Priority: High Code(s): M53.3 - SACROCOCCYGEAL DISORDERS, NOT ELSEWHERE CLASSIFIED SNOMED Code(s): 15686816 Time with Patient: Greater than 30
--- NOTE | 2021-08-05 21:00 | P.DS ---
Providers Date of admission: 08/03/21 08:38 Expected date of discharge: 08/05/21 Attending physician: Sameera Tello MD Consults: 08/01/21 17:39 Consult Physician Urgent Consulting Provider: Rico Saravia Consult Reason/Comments: sacral mass Do you want consulting provider notified?: Yes Consult Physician Urgent Consulting Provider: Jose Alejandro Bloom Consult Reason/Comments: sacral mass, pain management Do you want consulting provider notified?: Yes 08/03/21 17:19 Consult Physician Routine Consulting Provider: Doug Zapata Consult Reason/Comments: adenocarcinoma of the sacrum Do you want consulting provider notified?: Yes Primary care physician: Rico Saravia MD Hospital Course: Discharge Diagnosis: Intractable pain secondary to malignancy 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 Saravia secondary to uncontrolled pain. Initial laboratory analysis is unremarkable. She was admitted for pain control. She was started on Toradol, baclofen, and Dilaudid. She was started on Percocet on 08/03 with some improvement in her pain. Her pain management continued to be adjusted. She family had adequate pain control on 08/05 with a accommodation of fentanyl, Percocet, and gabapentin. She was seen by radiation oncology will be followed in the outpatient setting. She was also seen by medical oncology and is considering transferring her care here and possible immunotherapy options. She was set up with palliative care as if her only option would be the chemotherapy she would elect for hospice care. She was started on an aggressive bowel regiment Patient seen and examined at bedside. Had increased pain due to her gabapentin being spaced out. She states she does better at home when it is every 8 hours instead of 3 times daily. States overall her pain is much more tolerable and improved. Vital signs reviewed and stable. General: non toxic, no distress, appears at stated age Derm: warm, dry Head: atraumatic, normocephalic, symmetric Eyes: EOMI, no lid lag, anicteric sclera Mouth: no lip lesion, mucus membranes moist Cardiovascular: S1S2 reg, no murmur, positive posterior tibial pulse bilateral, Lungs: CTA bilateral, no rhonchi, no rales , no accessory muscle use Abdominal: soft, nontender to palpation, no guarding, no appreciable organ omegaly Ext: no gross muscle atrophy, no edema, no contractures Neuro: CN II-XI grossly intact, no focal neuro deficits Psych: Alert, oriented, appropriate affect A total of 45 minutes of time were spent preparing this complex discharge summary . Patient Condition at Discharge: Stable Plan - Discharge Summary New Discharge Prescriptions: New Lidocaine 5% Patch [Lidoderm 5% Patch] 1 patch TOPICAL DAILY #30 patch Sulfamethox-Tmp 800-160Mg [Bactrim DS 800-160 mg] 1 each PO BID #6 tab fentaNYL 12MCG/HR PATCH [Duragesic 12MCG/HR] 1 patch TRANSDERM Q72H #10 patch polyethylene glycoL 3350 [Miralax] 17 gm PO DAILY packet Gabapentin [Neurontin] 800 mg PO TID #180 cap oxyCODONE HCL/ACETAMINOPHEN [Percocet 5-325 mg] 1 - 2 tab PO Q6HR PRN 7 Days #56 tab PRN Reason: Breakthrough Pain Continue Sennosides [Senokot] 8.6 mg PO DAILY PRN PRN Reason: Constipation Naproxen Sodium [Aleve] 220 mg PO TID Discontinued Gabapentin 300 mg PO QID HYDROcodone/APAP 7.5-325MG [Bertram 7.5-325] 1 tab PO TID traMADol HCl [Ultram] 50 mg PO TID Discharge Medication List Naproxen Sodium [Aleve] 220 mg PO TID 08/01/21 [History] Sennosides [Senokot] 8.6 mg PO DAILY PRN 08/01/21 [History] Gabapentin [Neurontin] 800 mg PO TID #180 cap 08/05/21 [Rx] Lidocaine 5% Patch [Lidoderm 5% Patch] 1 patch TOPICAL DAILY #30 patch 08/05/21 [Rx] Sulfamethox-Tmp 800-160Mg [Bactrim DS 800-160 mg] 1 each PO BID #6 tab 08/05/21 [Rx] fentaNYL 12MCG/HR PATCH [Duragesic 12MCG/HR] 1 patch TRANSDERM Q72H #10 patch 08/05/21 [Rx] oxyCODONE HCL/ACETAMINOPHEN [Percocet 5-325 mg] 1 - 2 tab PO Q6HR PRN 7 Days #56 tab 08/05/21 [Rx] polyethylene glycoL 3350 [Miralax] 17 gm PO DAILY packet 08/05/21 [Rx] Follow up Appointment(s)/Referral(s): Doug Zapata MD [STAFF PHYSICIAN] - (DR ZAPATA WHEN NEEDED.) [facility], [NON-STAFF] - 08/10/21 (PATIENT HAS AN APPOINTMENT WITH PALLIATIVE CARE ON 08/10/21) Rico Saravia MD [Primary Care Provider] - 08/28/21 1:00 pm Patient Instructions/Handouts: Pain Management (DC) Activity/Diet/Wound Care/Special Instructions: Activity: as tolerated Diet: regular Special Instructions: Bowel Regiment: Miralax and Senokot daily until you have a bowel movement 3 days in a row, then decrease to senokot alone daily and miralax as needed for ad ditional constipation Discharge Disposition: HOME WITH HOME HEALTH SERVICES
== END 2021-08-05 16:02 | disposition hospice, home (50) | DRG 948 ==
LOC: EC 14:32 → 5NMEDONC 17:37 → OBSVTOIN 08-03 08:38
PROVIDERS: ADMIT Internal Medicine; ATTEND Internal Medicine
DX: G89.3 Neoplasm related pain (acute) (chronic) (principal); C41.4 Malignant neoplasm of pelvic bones, sacrum and coccyx; M25.551 Pain in right hip; Z20.822 Contact with and (suspected) exposure to COVID-19; Z51.5 Encounter for palliative care; K59.00 Constipation, unspecified; M54.30 Sciatica, unspecified side; Z87.891 Personal history of nicotine dependence; Z98.51 Tubal ligation status
CPT/HCPCS: 36415; 80048; 80053; 81001; 85025; 87086; 87635; 96374; 96375; 99284